=== PATIENT | female | born 1960 | race Caucasian/White ===

== ENCOUNTER → 2021-11-21 09:52 | Outpatient (CLI) | payer OTHER, SELFPAY ==
--- NOTE | ~2021-11-21 | XR_ITS ---
EXAMINATION: XR hand RT min 3V EXAM DATE: 11/21/2021 10:11 INDICATION: Pain of bilateral hands . TECHNIQUE: Right hand frontal, lateral and oblique projections obtained and reviewed. Correlation is made to contralateral hand same date. FINDINGS: Right metacarpal bones are unremarkable. There is moderate 3rd proximal interphalangeal pr imary osteoarthritis. Otherwise mild polyarticular osteoarthritis. There are no bony erosions identi fied. There are no acute fractures or dislocations identified. There is no subcutaneous gas. The so ft tissue is unremarkable. There are no radiopaque foreign bodies. 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 Reviewed, dictated and finalized at location A. SETTER
--- NOTE | ~2021-11-21 | XR_ITS ---
EXAMINATION: XR hand LT min 3V EXAM DATE: 11/21/2021 10:11 INDICATION: Pain of bilateral hands TECHNIQUE: Left hand frontal, lateral and oblique projections obtained and reviewed. Correlation is m my to contralateral hand same date. FINDINGS: Left metacarpal bones are unremarkable. There is mild polyarticular primary osteoarthritis . There are no bony erosions identified. There are no acute fractures or dislocations identified. T here is no subcutaneous gas. The soft tissue is unremarkable. There are no radiopaque foreign bodi es. IMPRESSION: Mild polyarticular left hand osteoarthritis. Reviewed, dictated and finalized at location A. NG MACHINE MECHANIC
--- NOTE | ~2021-11-21 | US_ITS ---
EXAMINATION: US venous doppler [facility] DATE: 11/21/2021 10:48 INDICATION: Bilateral arm pain TECHNIQUE: [place] scale images with and without compression and Doppler images of the right and left up per extremity veins were obtained. COMPARISON: None. FINDINGS: The right and left internal jugular vein, subclavian vein, axillary vein, brachial veins, basilic vei n, cephalic vein, radial vein, and ulnar vein are patent. IMPRESSION: 1. Patent bilateral upper extremity veins. No evidence of deep venous thrombosis. Reviewed, dictated and finalized at location B. NOLOGY CONSULTANT IMPRESSION: 1. Patent bilateral upper extremity veins. No evidence of deep venous thrombosi s.
== END ==
PROVIDERS: PCP Physician Assistant; Visit Provider Physician Assistant
DX: M79.641 Pain in right hand (principal); M79.642 Pain in left hand; M15.9 Polyosteoarthritis, unspecified
CPT/HCPCS: 73130; 93970

== ENCOUNTER → 2023-01-09 10:28 | Outpatient (CLI) | payer OTHER, SELFPAY ==
--- NOTE | ~2023-01-09 | XR_ITS ---
Lumbosacral Spine: AP and lateral views Clinical History: Pain Findings: The normal lordotic curve is maintained. The vertebral bodies and posterior elements are i ntact. The intervertebral disc spaces are preserved. There is facet arthropathy from L3 through S1. The sacroiliac joints are normally outlined. Impression: Facet joint degenerative change, as above. Reviewed, dictated and finalized at location . Impression: Facet joint degenerative change, as above.
== END ==
PROVIDERS: PCP Physician Assistant; Visit Provider Physician Assistant
DX: M54.16 Radiculopathy, lumbar region (principal); Z78.0 Asymptomatic menopausal state
CPT/HCPCS: 72100

== ENCOUNTER 2023-02-13 00:08 | Day surgery (SDC) | payer OTHER, SELFPAY ==
[2023-02-01 11:49] VITALS: BMI 24.3
[2023-02-13 11:38] VITALS: BP 121/80; PULSE 80; RESP 18; TEMP 36.6; O2SAT 100
[2023-02-13] MEDS: LACTATED RINGERS 1,000 ML 150 ML IV CONT (11:43)
--- NOTE | 2023-02-13 12:08 | PM.HPGS ---
History of Present Illness History of Present Illness Consent: Risks, benefits, and alternatives have been discussed and questions answered. Patient agrees to proceed with procedure. Chief complaint: neoplasm screening Narrative: Mariana Oakes is a 62 year old female Presents for screening colonoscopy. Patient's current weight appetite and bowel movements are normal. She denies abdominal pain. She has had no bleeding. Family history noncontributory. Patient reports an unremarkable colonoscopy 10 years ago. Review of Systems Review of Systems: Review of systems noncontributory. [facility] Social History Social History Smoking status: Never smoker Alcohol intake: current Drinks per week: 5 Substance use type: does not use Living arrangements: with family Spiritual care concerns: No Meds Home Medications and Allergies Home Medications Medication Instructions Recorded Confirmed Type cetirizine 10 mg tablet (Zyrtec) 10 mg PO DAILY PRN Allergy Symptoms 02/01/23 02/01/23 History multivitamin with minerals-folic 1 tablet PO DAILY 02/01/23 02/01/23 History acid 0.4 mg tablet Allergies Allergy/AdvReac Type Severity Reaction Status Date / Time erythromycin base Allergy Hives Verified 02/13/23 11:36 Vital Signs Vital Signs - 24 hr 02/13/23 11:38 Temperature 97.8 F Pulse Rate 80 Respiratory Rate 18 Blood Pressure 121/80 Pulse Oximetry 100 Oxygen Delivery Room Air Exam Narrative: Physical exam reveals patient to be alert. Vital signs stable. HEENT exam is unremarkable. Patient is anicteric. Lungs are clear to auscultation and percussion. Heart is without murmur or extra sounds. Abdomen bowel sounds are present soft nontender with no hepatosplenomegaly. Digital external rectal exam is normal. Assessment and Plan Assessment and plan (1) Encounter for screening colonoscopy: Code(s): Z12.11 - Encounter for screening for malignant neoplasm of colon Status: Acute Assessment and Plan: Patient presents today for screening colonoscopy. She appears to be at average risk for colon polyps. Further recommendations may be given after endoscopy.
--- NOTE | 2023-02-13 12:19 | P.PNAN_ITS ---
Anes - Initial Pre Proc Eval Procedure: Operation Date: 02/13/23 13:00 Proposed Procedures p Screening Colonoscopy - Jose Armstrong MD Date/Time: 02/13/23 12:19 Surgeon: Jose Armstrong MD Pre Op Diagnosis: neoplasm screening Patient Data Age: 62 Gender: F Height: 1.55 m Weight: 57.1 kg Last Vital Signs Temp 36.6 C 02/13/23 11:38 Pulse 80 02/13/23 11:38 Resp 18 02/13/23 11:38 BP 121/80 02/13/23 11:38 Pulse Ox 100 02/13/23 11:38 O2 Del Method Room Air 02/13/23 11:38 Allergies Allergy/AdvReac Type Severity Reaction Status Date / Time erythromycin base Allergy Hives Verified 02/13/23 11:36 Home Medications Medication Instructions Recorded Confirmed Type cetirizine 10 mg tablet (Zyrtec) 10 mg PO DAILY PRN Allergy Symptoms 02/01/23 02/01/23 History multivitamin with minerals-folic 1 tablet PO DAILY 02/01/23 02/01/23 History acid 0.4 mg tablet Patient hx anesthesia problems: none Family hx anesthesia problems: none Results Review: All pre-operative results and documents have been reviewed as part of the pre- operative evaluation. [facility] Past Medical History Medical History PONV (postoperative nausea and vomiting) Renal dysfunction Surgical History Surgical History History of appendectomy Social History Social History Smoking status: Never smoker Alcohol intake: current Drinks per week: 5 Substance use type: does not use Living arrangements: with family Spiritual care concerns: No Anes - Eval Final PreProcedure Day of Procedure 02/13/23 12:19 Patient weight: normal Heart: regular rate and rhythm Lungs: clear to auscultation and normal air movement Airway: Mallampati scale class II Neurological: alert and oriented Last oral intake: >/= 8 hours ASA classification: II Emergent: no Anesthetic plan: proceed Anesthesia type and monitoring: general GIVS and standard monitoring Results Review: All pre-operative results and documents have been reviewed as part of the pre- operative evaluation. Informed Consent: The patient's anesthetic plan and its attendant risks and benefits were discussed with the patient/family/POA. Questions were solicited and answers provided to the satisfaction of the patient/family/POA.
--- NOTE | 2023-02-13 12:20 | P.PNAN_ITS ---
Anes - Eval Pre Procedure Procedure: Operation Date: 02/13/23 13:00 Proposed Procedures p Screening Colonoscopy - Jose Armstrong MD Date/Time: 02/13/23 12:20 Pre Op Diagnosis: neoplasm screening Patient Data Age: 62 Gender: F Height: 1.55 m Weight: 57.1 kg Last Vital Signs Temp 97.8 F 02/13/23 11:38 Pulse 80 02/13/23 11:38 Resp 18 02/13/23 11:38 BP 121/80 02/13/23 11:38 Pulse Ox 100 02/13/23 11:38 O2 Del Method Room Air 02/13/23 11:38 Allergies Allergy/AdvReac Type Severity Reaction Status Date / Time erythromycin base Allergy Hives Verified 02/13/23 11:36 Home Medications Medication Instructions Recorded Confirmed Type cetirizine 10 mg tablet (Zyrtec) 10 mg PO DAILY PRN Allergy Symptoms 02/01/23 02/01/23 History multivitamin with minerals-folic 1 tablet PO DAILY 02/01/23 02/01/23 History acid 0.4 mg tablet Patient hx anesthesia problems: none Family hx anesthesia problems: none Results Review: All pre-operative results and documents have been reviewed as part of the pre- operative evaluation. [facility] Past Medical History Medical History PONV (postoperative nausea and vomiting) Renal dysfunction Surgical History Surgical History History of appendectomy Social History Social History Smoking status: Never smoker Alcohol intake: current Drinks per week: 5 Substance use type: does not use Living arrangements: with family Spiritual care concerns: No Exam Day of Procedure 02/13/23 12:20 Patient weight: normal
[2023-02-13 12:59] VITALS: BP 115/72; PULSE 83; RESP 18; O2SAT 98
[2023-02-13 13:09] VITALS: BP 122/77; PULSE 75; RESP 21; O2SAT 100
[2023-02-13 13:19] VITALS: BP 118/76; PULSE 77; RESP 22; O2SAT 100
== END 2023-02-13 13:25 | disposition home or self-care (01) ==
PROVIDERS: PCP Physician Assistant; Visit Provider Internal Medicine Gastroenterology
PROC: 0DJD8ZZ Inspection of Lower Intestinal Tract, Via Natural or Artificial Opening Endoscopic (ICD-10-PCS; CPT 45378; principal; 2023-02-13 13:00)
DX: Z12.11 Encounter for screening for malignant neoplasm of colon (principal); D12.5 Benign neoplasm of sigmoid colon; K64.8 Other hemorrhoids; K57.30 Diverticulosis of large intestine without perforation or abscess without bleeding
CPT/HCPCS: 45385; 88305; J2704; J7120

== ENCOUNTER → 2023-04-16 10:11 | Outpatient (CLI) | payer OTHER, SELFPAY ==
--- NOTE | ~2023-04-16 | DEXA_ITS ---
Bone Density Report Name: CHARITY RAMAN Age: 62 Sex: Female Ethnicity: White Date of : 1960 Indication: postmenopausal; screening for osteoporosis; Referring Provider: NAYELY, SILVANO Study: Bone densitometry was performed. Exam Date: April 16, 2023 Accession number: [id number] Bone Density: Region BMD T-score Z-score Classification AP Spine (L1-L4) 0.930 -1.1 0.4 Osteopenia Femoral Neck (Left) 0.627 -2.0 -0.7 Osteopenia Total Hip (Left) 0.794 -1.2 -0.2 Osteopenia Femoral Neck (Right) 0.586 -2.4 -1.1 Osteopenia Total Hip (Right) 0.753 -1.6 -0.6 Osteopenia Total Hip Mean 0.774 -1.4 -0.4 Osteopenia World Health Organization criteria for BMD impression classify patients as: Normal (T-score at or above -1.0), Osteopenia (T-score between -1.0 and -2.5), or Osteoporosis (T-score at or below -2.5). 10-year Fracture Risk(1): Major Osteoporotic Fracture 11% Hip Fracture 1.8% Reported Risk Factors: [place] (), Neck BMD=0.586, BMI=23.9 (1) FRAX(R) Version 3.08. Fracture probability calculated for an untreated patient. Fracture probability may be lower if the patient has received treatment. Clinical Information Provided by Patient: Has used the following medications: Vitamin D, [employer] Patient maximum height was 61.5 Menopause Age: 58 Drinks caffeinated beverages Onset of menses at age 13 Number of children 2 Impression: The patient has low bone mass, based on the Right Femoral Neck T-score. The patient has an estimated ten-year risk of hip fracture of 1.8% and an estimated ten-year risk of major fracture of 11%, based on the WHO FRAX algorithm. Discussion: BONE DENSITY IS LOW AT ONE OR MORE SKELETAL SITES. This patient's lowest T-score is low at one or more skeletal sites. It meets the World Health Organization's (WHO) criteria for ?low bone mass? (T-score between -1.0 and -2.5). The patient's 10-year risk of fracture as calculated by FRAX is less than the threshold where pharmacological therapy is recommended by the National Osteoporosis Foundation (NOF). However, all treatment decisions require clinical judgment and consideration of individual patient factors, including patient preferences, comorbidities, previous drug use, risk factors not captured in the FRAX model (e.g., frailty, falls, vitamin D deficiency, increased bone turnover, interval significant decline in bone density) and possible under or overestimation of fracture risk by FRAX. The patient should follow a healthful lifestyle (good nutrition with adequate calcium and vitamin D, and appropriate weight-bearing exercise). Follow-Up: Consider repeating this study in 2 to 3 years to reassess this patient's status, or sooner if there is some new clinical indication. Reported by: TANA on 04/16/2023 10:33:00 AM.
== END ==
PROVIDERS: PCP Physician Assistant; Visit Provider Physician Assistant
DX: Z78.0 Asymptomatic menopausal state (principal); M85.89 Other specified disorders of bone density and structure, multiple sites
CPT/HCPCS: 77080

== ENCOUNTER 2025-07-20 12:28 | Outpatient (CLI) | payer OTHER, SELFPAY ==
--- NOTE | ~2025-07-20 | XR_ITS ---
EXAMINATION: XR foot RT 2V, 07/20/2025 12:36 CDT HISTORY: swelling of toe of right foot, swelling x 4 days, no inj COMPARISON: No comparisons available. Findings: One view the intermediate phalanx of the third digit may be subluxed, dislocation not excluded, clinical correlation is required. No significant degenerative changes. Soft tissues unremarkable. Impression: Please see above Reviewed, dictated and finalized at location A. Impression: Please see above
== END 2025-07-20 12:29 | disposition home or self-care (01) ==
PROVIDERS: PCP Physician Assistant; Visit Provider Physician Assistant
DX: M79.89 Other specified soft tissue disorders (principal)
CPT/HCPCS: 73620

== ENCOUNTER 2025-09-26 11:48 | Emergency (ER) | payer OTHER, SELFPAY ==
--- NOTE | ~2025-09-26 | XR_ITS ---
Examination: XR shoulder LT min 2V Clinical History: left shoulder pain, no injury Comparison: None Technique: 4 views left shoulder Findings/impression: 1. No fracture or dislocation left shoulder. 2. Minimal degenerative changes glenohumeral joint. 3. Moderate degenerative changes AC joint. Reviewed, dictated and finalized at location R. IC MANGLER
--- NOTE | 2025-09-26 11:54 | ED.UPPEXIN ---
HPI - Extremity Injury (Upper) General Chief Complaint: Extremity Injury, Upper Stated Complaint: LT SHOULDER PAIN/NAUSEA Time Seen by Provider: 09/26/25 11:50 Source: patient Mode of arrival: ambulatory Limitations: no limitations History of Present Illness HPI narrative: patient is a 65-year-old female who presents with left shoulder pain for 2 days. States she had similar pain 4 days ago but it improved with ibuprofen, now it is not. Patient denies any injury. 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 Denies any numbness, tingling or weakness to the arm. Pain is worse with movement and the amount of pain makes her nauseous. 08/07 pain with movement Related Data Home Medications ?Medication ?Instructions ?Recorded ?Confirmed ?Last Taken ?Type cetirizine 10 mg tablet (Zyrtec) 10 mg PO DAILY PRN Allergy Symptoms 02/01/23 09/26/25 02/13/23 08:00 History multivitamin with minerals-folic 1 tablet PO DAILY 02/01/23 09/26/25 02/13/23 08:00 History acid 0.4 mg tablet Allergies Allergy/AdvReac Type Severity Reaction Status Date / Time erythromycin base Allergy Hives Verified 09/26/25 12:00 Review of Systems Review of Systems: All systems reviewed & are unremarkable except as noted in HPI and below Constitutional: Constitutional: Denies body ache(s), Denies chills, Denies fatigue, Denies fever(s), Denies headache(s), Denies malaise and Denies weakness Eyes: Eyes: Denies blurry vision, Denies irritation and Denies loss of vision ENT: Denies otalgia, Denies headache(s), Denies nasal discharge, Denies sinus pain and Denies sore throat Cardiovascular: Cardiovascular: Denies chest pain, Denies irregular heart rhythm and Denies dyspnea Respiratory: Respiratory: Denies dyspnea Gastrointestinal: Gastrointestinal: Denies abdominal pain, Denies melena, Denies hematochezia, Denies diarrhea, Denies nausea and Denies vomiting Musculoskeletal: Musculoskeletal: Denies back pain, Denies myalgias and Reports arthralgias Integumentary/Breasts: Skin/Breast: Denies pruritus and Denies rash Neurologic: Denies headache(s), Denies loss of vision and Denies weakness Psychiatric: Psychiatric: Reports no additional psychiatric complaints Endocrine: Endocrine: Denies fatigue PMFSH Past Medical History Medical History PONV (postoperative nausea and vomiting) Renal dysfunction Surgical History Surgical History History of appendectomy Social History Social History Smoking status: Never smoker Alcohol intake: current Drinks per week: 5 Substance use type: does not use Living arrangements: with family Spiritual care concerns: No Comments At time of signature, agree with nursing past medical, surgical, social and family history. There is no relevant family history pertinent to the presenting complaint. Exam Const: General: cooperative, healthy appearing, comfortable, no acute distress and well nourished Nutritional Appearance: well nourished Orientation/consciousness: patient oriented x3 Limitations: no limitations HENMT: Head: normal to inspection, normocephalic and atraumatic Ears: hearing grossly normal bilaterally and external ears normal Face/Nose/Sinus: Normal external nose present, normal facial exam and face symmetric Face and sinus: normal facial exam and face symmetric Mouth: Yes lip normal Eyes: General: appearance normal, both eyes and all related structures Alignment and Position: alignment normal and position normal Periorbital: periorbital findings normal Eyelids: eyelids normal Pupils: Equal, round and reactive pupils present EOM: EOMs intact bilaterally Neck: Neck: normal visual inspection, full ROM and supple Chest: Chest palpation & inspection: normal inspection of the chest Resp: Effort & Inspection: normal respiratory effort and able to speak in complete sentences Auscultation: clear to auscultation bilaterally Cardio: Rate: regular rate Rhythm: regular rhythm Heart sounds: S1 normal heart sound present and S2 normal heart sound present GI: Inspection: normal to inspection Skin: General skin exam: normal color and no rashes or lesions noted Neuro: General: patient oriented x3 and moves all extremities Cranial nerves: Yes Equal, round and reactive pupils present Speech: normal speech Gait exam (Neuro): Normal gait present Extrem: General: normal to inspection, full ROM and no edema Left upper extremity: shoulder/upper arm tenderness of the A-C joint (anterior), axillary nerve sensory function normal and abnormal ROM pain with active ROM in ABduction (after horizontal plane) and in internal rotation; but not in ADduction, but not in extension, but not in flexion and external rotation-; no swelling, no ecchymosis and no deformity and elbow/forearm normal to inspection, normal ROM and distal pulses intact; no tenderness, no swelling and no ecchymosis Psych: Appearance: grossly normal and well kempt Mental Status: mental status grossly normal Speech and movement: Normal speech and movement present Affect: normal affect Attitude: cooperative Thought process: Normal thought process present Course Course Emergency Course: Patient is aware of diagnosis, understands and agrees to treatment plan. Anticipatory guidance given. Patient agrees to follow-up as directed and is aware of reasons to seek care at the emergency department. Portions of this record may have been created with voice recognition software Level of Care: Express Care Visit Vital Signs Vital signs: Reviewed MDM - Extremity Injury (Upper) MDM Narrative Medical decision making narrative: The L shoulder is without obvious asymmetry or deformity when comparing to R shoulder. No surface trauma, ecchymosis, crepitus. No bony deformity of the humerus head. No erythema, warmth, swelling to palpate. Nontender to palpate over the clavicle, acromion, scapula, or humeral head. Nontender to palpations of the bicipital groove or soft tissue. Nontender to palpate of the muscles of the sternocleidomastoid, pectoris, biceps/triceps, deltoid, trapezius, rhomboid, latissimus dorsi. Mild point tenderness to anterior aspect of the AC joint. No pain or limitation with active or passive adduction, external rotation, flexion/extension. pain with abduction breaking horizontal plane and internal rotation. No axillary tenderness or lymphadenopathy. Normal sensation over the deltoid and ability to flex the arm at the elbow indicated Intacs axillary nerve function. Distal motor is a normal vascular status is intact. Will treat with steroids and muscle relaxers. ALso give zofran for pain induced nausea. Refer to ortho. The patient is stable at time of discharge the clinical impression was discussed and the patient was given the opportunity to ask questions, which were addressed as completely as possible given the information available at present. Anticipatory guidance and return to care precautions were discussed and the importance of primary care follow-up was stressed and encouraged. The patient voiced understanding of the plan, indications to return, and the need for follow-up. Exam findings show no acute concerns or changes Patient is appropriate for outpatient treatment and follow-up. Differential Diagnosis Differential diagnosis: Likely dislocation of shoulder and other (shoulder fracture, shoulder strain) Imaging Data Radiologist's impression: Examination: XR shoulder LT min 2V Clinical History: left shoulder pain, no injury Comparison: None Technique: 4 views left shoulder Findings/impression: 1. No fracture or dislocation left shoulder. 2. Minimal degenerative changes glenohumeral joint. 3. Moderate degenerative changes AC joint. Reviewed, dictated and finalized at location R. SYSTEMS DEVELOPER Discharge Plan Discharge Clinical Impression: Left shoulder strain Patient Disposition: Home Condition: Stable Instructions: Shoulder Sprain (ED) Additional Instructions: Xray showed no fracture. Minimize activities that aggravate the condition The RICE protocol. Follow the RICE protocol as soon as possible after your injury:. Ice should be immediately applied to keep the swelling down. It can be used for 20 to 30 minutes, three or four times daily. Do not apply ice directly to your skin. Compression dressings, bandages or odessa-wraps will immobilize and support your injured arm. Elevate your Arm above the level of your heart as often as possible during the first 48 hours. Medication: Take Steroids in the morning with food. Take muscle relaxers as needed. They can make you sleepy. Tylenol 650-1000mg by mouth every 4-6 hours. Do not exceed 4000mg in 24 hours. Use zofran as needed for nausea Please schedule a follow-up visit with your personal physician for further evaluation and treatment within 1week OR If your symptoms persist, change or worsen significantly before you can contact your personal physician then please, without delay, go to the emergency department for further evaluation. Patient Language: Green[place]ic Prescriptions: New prednisone 20 mg tablet 40 mg PO DAILY 5 Days Qty: 10 0RF baclofen 10 mg tablet 10 mg PO BID Qty: 10 0RF ondansetron 4 mg tablet,disintegrating 4 mg PO Q6-8H PRN (Reason: nausea and vomiting) Qty: 7 0RF No Action cetirizine [Zyrtec] 10 mg Tablet 10 mg PO DAILY PRN (Reason: Allergy Symptoms) multivit with min-folic acid [Adult One Daily Multivitamin] 0.4 mg Tablet 1 tablet PO DAILY Follow-up/Referrals: Sandip,DIXON Figueroa [Primary Care Provider, Unknown] - 3 Days Trevin Chaves MD [Physician, Orthopedics] - 3 Days Referral Note: left shoulder pain, no injury Time of Disposition: 12:36
[2025-09-26 11:59] VITALS: BP 139/83; PULSE 90; RESP 16; TEMP 36.3; O2SAT 98
== END 2025-09-26 12:40 | disposition home or self-care (01) ==
PROVIDERS: Emergency Provider Nurse Practitioner Family; PCP Physician Assistant
DX: S46.912A Strain of unspecified muscle, fascia and tendon at shoulder and upper arm level, left arm, initial encounter (principal); X50.0XXA Overexertion from strenuous movement or load, initial encounter
CPT/HCPCS: 73030; 99213; G0463

== ENCOUNTER 2025-10-02 09:56 | Outpatient (CLI) | payer OTHER, SELFPAY ==
--- NOTE | ~2025-10-02 | XR_ITS ---
EXAMINATION: XR abdomen/kub 1V, 10/02/2025 10:06 ADAPTIVE PHYSICAL EDUCATION SPECIALIST HISTORY: abnormal finding on screening procedure COMPARISON: No comparisons available. Technique: 3 view. Findings: Moderate fecal content, no dilated bowel loops No free air. No abnormal calcifications No acute osseous abnormality. Impression: 1. No acute abnormality. Reviewed, dictated and finalized at location P. TIVE PHYSICAL EDUCATION SPECIALIST Impression: 1. No acute abnormality.
== END 2025-10-02 09:57 | disposition home or self-care (01) ==
PROVIDERS: PCP Physician Assistant; Visit Provider Physician Assistant
DX: R68.89 Other general symptoms and signs (principal); Z96.0 Presence of urogenital implants
CPT/HCPCS: 74018